=== PATIENT | female | born 1940 | race Caucasian/White ===

== ENCOUNTER 2019-08-20 23:52 | Emergency (ER) | payer MEDICARE, MEDICAID ==
[~2019-08-20] VITALS: Ht 157.5 cm; Wt 59.9 kg
[~2019-08-20 23:52] MED LIST: ALBU-136; HYDR1TAB22 PO; VERA80TA PO
[2019-08-20 23:57] VITALS: BP 162/98
--- NOTE | 2019-08-21 00:15 | NUR ---
PT TAKEN TO BED 4
--- NOTE | 2019-08-21 00:29 | NUR ---
Dr. Wall examining patient.
--- NOTE | 2019-08-21 00:33 | NUR ---
PT'S GRANDSONS' GOT INTO AN ARGUMENT LAST NIGHT, SHE BECAME UPSET AND STARTED FEELING DIZZY AND HAD A HEADACHE. IT WAS GONE THIS A.M. HOWEVER AROUND 1 O'CLOCK P.M. SHE STARTED FEELING DIZZY AGAIN. DENIES ANY WEAKNESS TO EXTREMITES, AMBULATES WITH STEADY GAIT. SHE WAS CONCERNED THAT HER B/P WAS ELEVATED. BED IN LOWEST POSITION AND SIDERAIL UP X 1 [facility] HX - HTN, COPD
--- NOTE | 2019-08-21 00:40 | NUR ---
Patient discharged with v/s stable. Written and verbal after care instructions given and explained by Keyla SANTOS. Patient verbalized understanding. Ambulatory with steady gait. All questions addressed prior to discharge. Advised to follow up with PMD 1-2 days. Return back to any nearest ER if symptoms worsens.
[2019-08-21 00:41] VITALS: BP 137/84
== END 2019-08-21 00:40 | disposition home or self-care (01) ==
LOC: MED 23:52
DX: I10 Essential (primary) hypertension (principal); J44.9 Chronic obstructive pulmonary disease, unspecified; Z86.73 Personal history of transient ischemic attack (TIA), and cerebral infarction without residual deficits; Z79.899 Other long term (current) drug therapy; Z79.82 Long term (current) use of aspirin; Z88.6 Allergy status to analgesic agent; Z88.8 Allergy status to other drugs, medicaments and biological substances; Z88.5 Allergy status to narcotic agent
CPT/HCPCS: 99281

== ENCOUNTER 2023-10-08 16:02 | Emergency (ER) | payer MEDICAID, MEDICARE ==
[~2023-10-08] VITALS: Ht 154.9 cm; Wt 49.4 kg
[~2023-10-08 16:02] MED LIST changes: +ALBU-118; -ALBU-136; -HYDR1TAB22 PO; +LOSA1TAB PO
[2023-10-08 16:29] VITALS: BP 173/83; PULSE 92; RESP 20; TEMP 98.1; O2SAT 95
[2023-10-08] MEDS ORDERED: ATA25 PO (17:47)
[2023-10-08] MEDS: LORazepam 1 MG TAB PO ONE (17:49)
== END 2023-10-08 18:03 | disposition home or self-care (01) ==
LOC: MED 16:02
DX: F41.9 Anxiety disorder, unspecified (principal); J44.9 Chronic obstructive pulmonary disease, unspecified; I10 Essential (primary) hypertension; Z86.73 Personal history of transient ischemic attack (TIA), and cerebral infarction without residual deficits; Z79.899 Other long term (current) drug therapy; Z98.890 Other specified postprocedural states; Z88.5 Allergy status to narcotic agent; Z88.6 Allergy status to analgesic agent; Z88.0 Allergy status to penicillin; Z91.040 Latex allergy status
CPT/HCPCS: 99283